=== PATIENT | female | born 1990 | race Caucasian/White ===

== ENCOUNTER 2019-03-23 10:30 | Emergency (ER) | payer MEDICAID ==
[~2019-03-23] VITALS: Ht 152.4 cm; Wt 53.5 kg
[2019-03-23 11:46] VITALS: BP 91/60
[2019-03-23 12:50] LABS: BASOPHILS % (AUTO) 0.5 % (0.0-2.0); EOSINOPHILS # (AUTO) 0.1 K/uL (0-0.4); EOSINOPHILS % (AUTO) 1.2 % (0.0-4.0); HEMATOCRIT 38.2 % (36-48); HEMOGLOBIN 12.9 g/dL (12.0-16.0); LYMPHOCYTES # (AUTO) 1.2 K/uL (2.5-16.5); MEAN CORPUSCULAR HEMOGLOBIN 32 pg (27-31); MEAN CORPUSCULAR HGB CONC 34 g/dL (33-37); MEAN CORPUSCULAR VOLUME 93.9 fL (80-94); MONOCYTES # (AUTO) 0.3 K/uL (0.8-1.0); MONOCYTES % (AUTO) 4.9 % (1.7-9.3); NEUTROPHILS # (AUTO) 4.5 K/uL (1.8-7.7); NEUTROPHILS % (AUTO) 73.4 % (42.2-75.2); PLATELET COUNT (AUTO) 304 K/uL (140-450); RED BLOOD CELL COUNT(AUTO) 4.07 MIL/uL (4.20-5.40); RED CELL DISTRIBUTION WIDTH 12.3 % (11.6-13.7); WHITE BLOOD COUNT (AUTO) 6.1 K/uL (4.8-10.8)
[2019-03-23 13:04] LABS: ANION GAP 10.7 (8-16); CARBON DIOXIDE 25.1 mmol/L (21-32); CREATININE 0.4 mg/dL (0.6-1.3); POTASSIUM 3.8 mmol/L (3.5-5.1)
[2019-03-23 13:10] LABS: ALBUMIN 3.9 g/dL (3.4-5.0); TOTAL BILIRUBIN 0.4 mg/dL (0.0-1.0)
[2019-03-23 13:15] LABS: APPEARANCE,URINE CLEAR (CLEAR); BILIRUBIN,URINE NEGATIVE (NEGATIVE); BLOOD, URINE TRACE-I (NEGATIVE); COLOR,URINE YELLOW (YELLOW); LEUKOCYTE ESTERASE ,URINE NEGATIVE (NEGATIVE); NITRITE, URINE NEGATIVE (NEGATIVE); PH,URINE 6.5 (5.0-9.0); UGLUCOSE NEGATIVE (NEGATIVE)
[2019-03-23 13:42] LABS: RBC,URINE 0-5 /HPF (0-5); WBC,URINE 0-5 /HPF (0-5)
--- NOTE | 2019-03-23 14:49 | NUR ---
PT AMBULATED TO BED 01
--- NOTE | 2019-03-23 14:59 | NUR ---
28 Y/O F C/O LOWER ABDOMINAL PAIN X 2 DAYS 11/18. PT STATES SHE HAS N/V NO DIAHREA OR FEVER. PT VS STABLE. ABDOMEN IS FLAT, BOWEL SOUNDS ACTIVE ALL 4 QUADRANTS. PT PUT INTO GOWN, VS STABLE. BED LOWERED, SIDE RAIL X1 IN PLACE. NKA MEDHX:NONE
[2019-03-23] MEDS ORDERED: ACETAMINOPHEN 325 MG TAB PO ONE (15:20)
--- NOTE | 2019-03-23 15:39 | NUR ---
ULTRASOUND AT BEDSIDE PERFORMING ORDERED TEST.
--- NOTE | 2019-03-23 16:07 | NUR ---
WET MOUNT SWAB OF THE VAGINA PERFORMED ON PATIENT ORDERED BY , SENT TO LAB FOR PROCESSING. PT TOLERATED TEST WELL.
--- NOTE | 2019-03-23 16:18 | NUR ---
PT AMBULATED TO BATHROOM WITHOUT DIFFICULTY.
--- NOTE | 2019-03-23 17:12 | NUR ---
MD AT BEDSIDE WITH PATIENT.
[2019-03-23 17:36] VITALS: BP 101/61
== END 2019-03-23 17:36 | disposition home or self-care (01) ==
LOC: MED 10:30
DX: O26.91 Pregnancy related conditions, unspecified, first trimester (principal); R10.2 Pelvic and perineal pain
CPT/HCPCS: 36415; 76801; 80053; 81001; 84702; 85025; 87210; 99284; Q0092